=== PATIENT | female | born 1965 | race Caucasian/White ===

== ENCOUNTER 2017-05-18 11:48 | Inpatient (IN) | payer OTHER ==
[2017-05-18] VITALS (32 sets, daily range): BP systolic 98–148; BP diastolic 60–86
[~2017-05-18] VITALS: Ht 167.6 cm; Wt 96.6 kg
[2017-05-18] MEDS ORDERED: LEVEMIR SUBQ (12:02)
[2017-05-18] MEDS ORDERED: NOVOLOG100 UNIT/1 SUBQ (12:03)
[2017-05-18] MEDS ORDERED: DULOXETINE HCL40 MG PO (12:03)
[2017-05-18] MEDS ORDERED: ASPIR 8181 MG PO (12:03)
[2017-05-18] MEDS ORDERED: LIPITOR20 MG PO (12:04)
[2017-05-18] MEDS ORDERED: GLYXAMBI 10 MG1 EACH PO (12:06)
[2017-05-18 12:20] LABS: BASOPHILS 0.2 % (0.0-2.0); EOSINOPHILS 0.2 % (0.0-3.0); HEMATOCRIT 46.7 % (37.0-47.0); LYMPHOCYTES 20.5 % (24.0-44.0); MCH 30.1 pg (26.0-34.0); MCHC 34.3 g/dL (28.0-37.0); MCV 87.7 fL (80.0-100.0); MONOCYTES 10.1 % (1.0-8.0); PLATELET COUNT 405 thou/uL (150-400); RBC 5.33 mil/uL (4.20-5.00); RDW 12.8 % (10.5-14.5); WBC 10.2 thou/uL (4.0-11.0)
[2017-05-18 12:21] LABS: MANUAL DIFF NO
[2017-05-18 12:23] LABS: URINE BLOOD NEGATIVE (Negative); URINE COLOR YELLOW; URINE GLUCOSE-RANDOM* 2+ (Negative); URINE KETONES 3+ (Negative); URINE LEUKOCYTES-REFLEX NEGATIVE (Negative); URINE PROTEIN (DIPSTICK) TRACE (Negative); URINE SPECIFIC GRAVITY >= 1.030 (1.003-1.035)
[2017-05-18 12:25] LABS: ICTOTEST (BILI CONFIRMATORY) Negative (Negative); URINE BILIRUBIN NEGATIVE (Negative)
[2017-05-18 12:38] LABS: ALBUMIN 3.5 g/dL (3.4-5.0); ALKALINE PHOSPHATASE 95 U/L (46-116); ANION GAP 22 mmol/L (7-16); BUN 23 mg/dL (7-18); CALCIUM 8.8 mg/dL (8.5-10.1); CHLORIDE 94 mmol/L (98-107); CO2 12 mmol/L (21-32); GLUCOSE 356 mg/dL (74-106); POTASSIUM 4.1 mmol/L (3.5-5.1); SGOT 12 U/L (15-37); SGPT 17 U/L (30-65); SODIUM 128 mmol/L (136-145); TOTAL BILIRUBIN 1.1 mg/dL (<0.1-1.0); TOTAL PROTEIN 7.9 g/dL (6.4-8.2); TROPONIN-I < 0.04 ng/mL (<0.04-0.07)
[2017-05-18 17:12] LABS: CALCIUM 7.8 mg/dL (8.5-10.1); CREATININE 0.8 mg/dL (0.6-1.0); POTASSIUM 4.1 mmol/L (3.5-5.1)
[2017-05-18 17:15] LABS: ALBUMIN 2.8 g/dL (3.4-5.0); MAGNESIUM 1.9 mg/dL (1.8-2.4); PHOSPHORUS 2.3 mg/dL (2.5-4.9)
[2017-05-18 21:04] LABS: ALBUMIN 2.7 g/dL (3.4-5.0); CALCIUM 7.7 mg/dL (8.5-10.1); CREATININE 0.7 mg/dL (0.6-1.0); MAGNESIUM 1.8 mg/dL (1.8-2.4); PHOSPHORUS 1.7 mg/dL (2.5-4.9); POTASSIUM 3.5 mmol/L (3.5-5.1)
[2017-05-19] VITALS (22 sets, daily range): BP systolic 95–131; BP diastolic 53–93
[2017-05-19 04:59] LABS: HEMATOCRIT 39.5 % (37.0-47.0); MCH 29.3 pg (26.0-34.0); MCHC 33.5 g/dL (28.0-37.0); MCV 87.5 fL (80.0-100.0); RBC 4.51 mil/uL (4.20-5.00); RDW 12.4 % (10.5-14.5); WBC 6.7 thou/uL (4.0-11.0)
[2017-05-19 05:03] LABS: HEMOGLOBIN 13.2 gm/dL (12.0-15.0); MANUAL DIFF YES; PLATELET COUNT 290 thou/uL (150-400)
[2017-05-19 05:07] LABS: CALCIUM 7.6 mg/dL (8.5-10.1); CREATININE 0.7 mg/dL (0.6-1.0)
[2017-05-19 05:13] LABS: GLYCOHEMOGLOBIN (HGB A1C) 10.8 % (4.8-5.6)
[2017-05-19 05:24] LABS: ABSOLUTE NEUTROPHILS 3.6 thou/uL (1.4-8.2); PLATELET ESTIMATE NORMAL; TOTAL CELL COUNT 100
[2017-05-19 15:40] LABS: CREATININE 0.6 mg/dL (0.6-1.0); POTASSIUM 3.2 mmol/L (3.5-5.1)
[2017-05-20] VITALS (9 sets, daily range): BP systolic 101–132; BP diastolic 67–80
[2017-05-20 04:48] LABS: ABSOLUTE NEUTROPHILS 2.8 thou/uL (1.4-8.2); BASOPHILS 0.5 % (0.0-2.0); EOSINOPHILS 1.8 % (0.0-3.0); HEMATOCRIT 38.1 % (37.0-47.0); MCH 29.5 pg (26.0-34.0); MCV 86.5 fL (80.0-100.0); MONOCYTES 10.9 % (1.0-8.0); PLATELET COUNT 252 thou/uL (150-400); POLYS 46.8 % (36.0-66.0); RDW 12.4 % (10.5-14.5); WBC 5.9 thou/uL (4.0-11.0)
[2017-05-20 04:49] LABS: MANUAL DIFF NO
[2017-05-20 04:54] LABS: CALCIUM 8.1 mg/dL (8.5-10.1); CREATININE 0.6 mg/dL (0.6-1.0); POTASSIUM 3.6 mmol/L (3.5-5.1)
[2017-05-21 04:00] VITALS: BP 128/85
[2017-05-21 06:03] LABS: ABSOLUTE NEUTROPHILS 2.1 thou/uL (1.4-8.2); BASOPHILS 0.6 % (0.0-2.0); EOSINOPHILS 2.4 % (0.0-3.0); HEMATOCRIT 37.9 % (37.0-47.0); HEMOGLOBIN 12.6 gm/dL (12.0-15.0); LYMPHOCYTES 42.6 % (24.0-44.0); MCH 29.4 pg (26.0-34.0); MCHC 33.4 g/dL (28.0-37.0); MCV 87.9 fL (80.0-100.0); MONOCYTES 8.6 % (1.0-8.0); PLATELET COUNT 244 thou/uL (150-400); POLYS 45.8 % (36.0-66.0); RDW 12.5 % (10.5-14.5); WBC 4.7 thou/uL (4.0-11.0)
[2017-05-21 06:14] LABS: MANUAL DIFF NO
[2017-05-21 06:21] LABS: CALCIUM 8.4 mg/dL (8.5-10.1); CREATININE 0.5 mg/dL (0.6-1.0); POTASSIUM 3.8 mmol/L (3.5-5.1)
[2017-05-21 07:45] VITALS: BP 147/90
[2017-05-21 13:36] VITALS: BP 147/90
== END 2017-05-21 14:00 | disposition home or self-care (01) | DRG 388 ==
LOC: ER 11:48 → ICU 13:49 → EROBS 13:49 → ICU 15:21 → 3N 05-20 11:38
PROVIDERS: Emergency Medicine; Family Medicine; Internal Medicine Endocrinology, Diabetes & Metabolism
DX: K56.60 Unspecified intestinal obstruction (principal); E13.10 Other specified diabetes mellitus with ketoacidosis without coma; E43 Unspecified severe protein-calorie malnutrition; G12.21 Amyotrophic lateral sclerosis; E78.5 Hyperlipidemia, unspecified; F32.9 Major depressive disorder, single episode, unspecified; R14.0 Abdominal distension (gaseous); Z53.29 Procedure and treatment not carried out because of patient's decision for other reasons; E87.6 Hypokalemia; Z90.49 Acquired absence of other specified parts of digestive tract; Z79.899 Other long term (current) drug therapy; Z68.34 Body mass index [BMI] 34.0-34.9, adult
CPT/HCPCS: 10078; 10795